=== PATIENT | female | born 1990 | race Caucasian/White ===

== ENCOUNTER 2022-01-08 08:30 | Inpatient (IN) | payer OTHER ==
[~2022-01-08 08:30] MED LIST: Bupivacaine 0.25% HCL 30 ML VIAL ONE; ePHEDrine Sulfate 50 MG/10 ML VIAL ONE
[2022-01-08] MEDS ORDERED: hydrALAZINE 20 MG/ML VIAL SLOW IVP PRN ×3 (09:55→17:09)
[2022-01-08] MEDS ORDERED: Acetaminophen 500 MG TAB PO PRN (10:19)
[2022-01-08] MEDS ORDERED: Ondansetron PF 4 MG/2 ML Vial IVP PRN ×3 (10:19→17:09)
[2022-01-08] MEDS ORDERED: Promethazine HCl 25 MG/ML VIAL IM PRN ×3 (10:19→17:09)
[2022-01-08] MEDS ORDERED: Misoprostol 200 MCG TAB PR PRN (10:24)
[2022-01-08] MEDS ORDERED: Carboprost 250 MCG/ML AMP IM PRN (10:24)
[2022-01-08] MEDS ORDERED: Lidocaine 1% (PF) 30 ML VIAL SC PRN (10:24)
[2022-01-08] MEDS ORDERED: Diphenoxylate HCl/Atropine Tablet PO PRN (10:24)
[2022-01-08] MEDS ORDERED: Methylergonovine 0.2 MG/ML VIAL IM PRN (10:24)
[2022-01-08] MEDS ORDERED: Ibuprofen 800 MG TAB PO PRN (10:24)
[2022-01-08] MEDS ORDERED: Fentanyl 100 MCG/2 ML VIAL SLOW IVP PRN (10:27)
[2022-01-08] MEDS ORDERED: Butorphanol Tartrate 1 MG/ML VIAL SLOW IVP PRN (10:27)
[2022-01-08] MEDS ORDERED: NS w/ Oxytocin 30 units 500 ML IV SCH ×3 (10:30→17:09)
[2022-01-08] MEDS ORDERED: Lactated Ringer's 1,000 ML IV SCH (10:30)
[2022-01-08 11:06] LABS: Hemoglobin 11.1 g/dL (12.0-15.5); Mean Corpuscular HGB CONC 32.3 g/dL (32.0-36.0); Mean Corpuscular Hemoglobin 24.1 pg (27.0-33.0); Mean Corpuscular Volume 74.8 fl (81.6-98.3); Mean Platelet Volume 10.3 fl (7.4-10.4); Platelet Count 270 10x3/uL (150-450); RBC Distribution Width 15.3 % (11.5-14.5); White Blood Cell (WBC) Count 18.5 10x3/uL (3.5-10.5)
[2022-01-08 11:38] LABS: Syphilis Antibody Nonreactive (Nonreactive); Syphilis Antibody Index 0.05 S/CO (<1.00 Non-Reactive)
[2022-01-08 11:39] LABS: Hep B Surf Ag Non-Reactive S/CO (NonReactive)
[2022-01-08 11:40] LABS: HBSAg Index 0.16 S/CO (0-0.99)
[2022-01-08] MEDS ORDERED: Fentanyl 2 mcg/Bup 0.1% Cadd 100 ML ONE (11:41)
[2022-01-08 12:20] VITALS: BMI 39.3
[2022-01-08] MEDS ORDERED: Moisturizing Cream (Eucerin) 113 GM JAR TOP PRN (12:22)
[2022-01-08] MEDS ORDERED: ePHEDrine Sulfate 50 MG/10 ML VIAL SLOW IVP PRN (12:22)
[2022-01-08] MEDS ORDERED: diphenhydrAMINE 50 MG/ML VIAL IVP PRN (12:22)
[2022-01-08] MEDS ORDERED: Naloxone HCl 0.4 mg/ml Vial IVP PRN ×2 (12:22)
[2022-01-08] MEDS ORDERED: Acetaminophen 325 MG TAB PO PRN (12:22)
[2022-01-08] MEDS ORDERED: Communication Order-Pharmacy FS SCH (12:30)
[2022-01-08] MEDS ORDERED: Fentanyl 2 mcg/Bupivacaine 0.1% Cassette 100 ML EPIDURAL SCH (12:30)
[2022-01-08] MEDS ORDERED: NS w/ Oxytocin 30 units 500 ML ONE (12:43)
[2022-01-08] MEDS ORDERED: Lactated Ringer's 500 ML IV PRN (12:46)
[2022-01-08 15:34] LABS: SARS-CoV-2 NAA Rapid Test Not Detected (NotDetected)
[2022-01-08] MEDS ORDERED: Bisacodyl 10 MG SUPP PR PRN (17:09)
[2022-01-08] MEDS ORDERED: Preparation H Ointment 28 GM TUBE PR PRN (17:09)
[2022-01-08] MEDS ORDERED: diphenhydrAMINE 25 MG CAP PO PRN (17:09)
[2022-01-08] MEDS ORDERED: Boostrix 0.5 ML (Tdap) VIAL IM ONE (17:09)
[2022-01-08] MEDS ORDERED: Milk Of Magnesia 30 ML UDCUP PO PRN (17:09)
[2022-01-08] MEDS ORDERED: Lanolin Ointment 7 GM TUBE TOP PRN (17:09)
[2022-01-08] MEDS ORDERED: Benzocaine-Menthol 82.5 ML CAN TOP PRN (17:09)
[2022-01-08] MEDS ORDERED: HYDROcodone/Acetaminophen 5/325 mg Tablet PO PRN ×2 (17:09)
[2022-01-08] MEDS: Ferrous Sulfate 325 MG TAB PO SCH (17:27)
[2022-01-08] MEDS: Ibuprofen 800 MG TAB PO SCH (21:21)
[2022-01-08] MEDS: Docusate 100 MG CAP PO SCH (21:22)
[2022-01-09] MEDS: Ibuprofen 800 MG TAB PO SCH ×2 (05:15→14:27)
[2022-01-09] MEDS: Ferrous Sulfate 325 MG TAB PO SCH (07:21)
[2022-01-09] MEDS ORDERED: Prenatal Vitamin 1 TAB PO SCH (09:00)
[2022-01-09] MEDS: Docusate 100 MG CAP PO SCH (10:00)
[2022-01-09 11:30] VITALS: BP 90/58; TEMP 98.8
== END 2022-01-09 18:25 | disposition home or self-care (01) | DRG 807 ==
LOC: CSHLD/OP 08:30 → CSHLD 11:55 → CSHPP 17:24
PROVIDERS: ADMIT Family Medicine; ATTEND Family Medicine
PROC: 10E0XZZ Delivery of Products of Conception, External Approach (ICD-10-PCS; principal; 2022-01-08)
PROC: 0KQM0ZZ Repair Perineum Muscle, Open Approach (ICD-10-PCS; 2022-01-08)
PROC: 10907ZC Drainage of Amniotic Fluid, Therapeutic from Products of Conception, Via Natural or Artificial Opening (ICD-10-PCS; 2022-01-08)
DX: O69.81X0 Labor and delivery complicated by cord around neck, without compression, not applicable or unspecified (principal); Z37.0 Single live birth; O70.1 Second degree perineal laceration during delivery; Z3A.39 39 weeks gestation of pregnancy; Z20.822 Contact with and (suspected) exposure to COVID-19
CPT/HCPCS: 36415; 51702; 85027; 86780; 86850; 86900; 86901; 87340; 99285; J2590; S0020; U0002